=== PATIENT | female | born 1985 | race Two or more races ===

== ENCOUNTER 2017-01-08 04:41 | Emergency (ER) | payer MEDICAID ==
[~2017-01-08] VITALS: Ht 149.9 cm; Wt 48.1 kg
[2017-01-08 04:56] VITALS: BP 135/67
[2017-01-08] MEDS ORDERED: SULF1TAB24 PO (04:57)
--- NOTE | 2017-01-08 04:57 | PHYS DOC ---
Past Medical History Past Medical History: No Pertinent History Past Surgical History: Alcohol Use: None Drug Use: None Adult General Chief Complaint Chief Complaint: INSECT BITE HPI HPI Patient is a 31 year old female who presents with 2 days of painful rash to left posterior medial thigh that is gradually worsening. Constant, achy pain. Started when she woke yesterday morning. Thinks there may have been a spider bite, but did not witness a bite or a spider. She denies fever or chills, nausea or vomiting, numbness, tingling, weakness. Review of Systems Review of Systems Constitutional: Denies fever or chills [] Eyes: Denies change in visual acuity, redness, or eye pain [] HENT: Denies nasal congestion or sore throat [] Respiratory: Denies cough or shortness of breath [] Cardiovascular: No additional information not addressed in HPI [] GI: Denies abdominal pain, nausea, vomiting, bloody stools or diarrhea [] : Denies dysuria or hematuria [] Musculoskeletal: Denies back pain or joint pain [] Integument: Denies rash [] Neurologic: Denies headache, focal weakness or sensory changes [] Endocrine: Denies polyuria or polydipsia [] Physical Exam Physical Exam Constitutional: Well developed, well nourished, no acute distress, non-toxic appearance. [] HENT: Normocephalic, atraumatic, bilateral external ears normal, oropharynx moist, nose normal. [] Eyes: PERRLA, EOMI. [] Neck: Normal range of motion, supple. [] Cardiovascular: Extremities warm and well perfused [] Lungs & Thorax: Respirations even and unlabored [] Skin: Warm, dry. [] Back: Normal ROM. [] Extremities: ROM intact, no edema. Left posterior proximal medial thigh with tender area 11.5x5.5cm erythema with central 2.5x2.5cm induration and darker erythema, no fluctuance or crepitance Neurologic: Alert and oriented X 3, normal motor function, normal sensory function, no focal deficits noted. [] Psychologic: Affect normal, judgement normal, mood normal. [] Course & Med Decision Making Course & Med Decision Making Discussed could be insect bite vs cellulitis. Will treat for more likely cellulitis. Supportive care discussed. Return precautions given. She understands and agrees with plan. Dragon Disclaimer Dragon Disclaimer This electronic medical record was generated, in whole or in part, using a voice recognition dictation system. Departure Departure Impression: Primary Impression: Cellulitis Disposition: 01 HOME, SELF-CARE Condition: STABLE Patient Instructions: Cellulitis, [id number] Additional Instructions: Take Tylenol or ibuprofen as they for pain. Take Bactrim for likely cellulitis. Follow-up with your primary care doctor within one week. Return for any concerns. Scripts Sulfamethoxazole/Trimethoprim (Bactrim Ds Tablet)1 Each Tablet1 Tab PO BID #[id number] TAB Prov:Samy MALIN MD 01/08/17 Problem Qualifiers Primary Impression: Cellulitis Site of cellulitis: extremity Site of cellulitis of extremity: lower extremity Laterality: left Qualified Code: L03.116 - Cellulitis of left lower limb Samy MALIN MD Jan 08, 2017 04:57
== END 2017-01-08 05:05 | disposition home or self-care (01) ==
LOC: ER 04:41
DX: L03.116 Cellulitis of left lower limb (principal)
CPT/HCPCS: 99283